=== PATIENT | male | born 1995 | race Caucasian/White ===

== ENCOUNTER 2016-04-06 15:33 | Emergency (ER) | payer OTHER ==
[2016-04-06] MEDS ORDERED: NORCO, ANEXSIA 5/325MG TABLET (HYDROcodone/ACETAMINOPHEN) As Ordered ONE (15:58)
[2016-04-06] MEDS ORDERED: IBUPROFEN 800 MG TAB As Ordered ONE (15:59)
--- NOTE | 2016-04-06 16:29 | REP ---
Clinical: Trauma. Technique: AP, lateral, bilateral oblique views of the right ankle. Findings: Lateral soft tissue swelling consistent with inversion injury. No acute fracture or dislocation. Joint spaces and ankle mortise intact. Impression: Predominant lateral soft tissue swelling. No acute fracture or dislocation. Signed by Simon Patel MD 04/06/2016 04:21 P
--- NOTE | 2016-04-06 16:30 | REP ---
Clinical: Trauma. Technique: AP and lateral views of the right foot. Findings: Osseous structures, joint spaces, and surrounding soft tissues are normal. No acute fracture or dislocation appreciated. Impression: Normal right foot radiographs. No acute fracture or dislocation. Signed by Simon Patel MD 04/06/2016 04:22 P
--- NOTE | 2016-04-06 17:14 | EDDOCDS ---
Physician Documentation [facility] Name: Flo Fuller Age: 20 yrs Sex: Male : 1995 Arrival Date: 04/06/2016 Time: 15:33 Bed PD Private MD: Daniel [facility] [place] Disposition: 04/06/16 16:28 Discharged to Home/Self Care. Impression: Sprain of ankle. - Condition is Stable. - Discharge Instructions: Ankle Sprain. - Prescriptions for Ibuprofen 800 mg Oral Tablet - take 1 tablet by ORAL route every 8 hours As needed take with food; 30 tablet. Tylenol 325 mg Oral Tablet - take 2 tablet by ORAL route every 6 hours as needed; 1 bottle. - Medication Reconciliation, Local Pharmacy Hours form. - Follow up: [place] [facility]; When: 2 - 3 days; Reason: Continuance of care. Follow up: Emergency Department; When: As needed; Reason: Worsening of conditions. - Problem is new. - Symptoms have improved. Historical: - Allergies: no known allergies; - Home Meds: 1. none - PMHx: none; - PSHx: none; - Social history: Smoking status: Patient states was never smoker of tobacco. No barriers to communication noted, The patient speaks fluent Maldivian, Speaks appropriately for age. - Family history: Not pertinent. - : The pt / caregiver states he / she is not on anticoagulants. Home medication list is obtained from the patient. - Exposure Risk Screening:: None identified. Vital Signs: 04/06 15:35 BP 153 / 66; Pulse 68; Resp 16; Temp 98.3(O); Pulse Ox 100% on R/A; Weight 90.72 kg / lr2 200 lbs (R); Height 5 ft. 10 in. (177.80 cm) (R); Pain 5/10; 17:10 BP 138 / 67; Pulse 62; Resp 18; Temp 98; Pulse Ox 97% ; Pain 6/10; ms18 15:35 Body Mass Index 28.70 (90.72 kg, 177.80 cm) lr2 Procedures: 16:49 Fracture care/splinting: (Stabilizing Care) Splint applied to right leg using walter wrap, dk1 Scotchcast applied by myself. Examined by me, post splint application: neurovascular intact, 2+ distal pulses palpable, brisk capillary refill noted, Patient tolerated well. MDM: 15:49 Ice Pack ordered. dk1 15:49 HYDROcodone-acetaminophen 5 mg-325 mg 1 tabs PO once ordered. dk1 15:49 Ibuprofen 800 mg PO once ordered. dk1 15:50 Ankle, Complete Ordered. EDMS 15:50 NOTHING BY MOUTH+DIET ordered. EDMS 15:53 Foot, (AP\E\lat) Ordered. EDMS 16:27 Crutches ordered. dk1 16:33 Financial registration complete. ks16 16:34 [facility] Payment Agreement was scanned into [employer] and attached to record. ks16 Administered Medications: 16:02 Drug: HYDROcodone-acetaminophen 1 tabs [hydrocodone 5 mg-acetaminophen 325 mg tablet (1 mlb1 tabs)] Route: PO; 17:10 Follow up: Response: No Adverse Reaction ms18 16:02 Drug: Ibuprofen 800 mg [ibuprofen 800 mg tablet (1 tabs)] Route: PO; mlb1 17:09 Follow up: Response: No Adverse Reaction ms18 Signatures: Dispatcher [employer] Serg Buchanan RN RN mlb1 Rubens Austin, PA-C PA-C dk1 Fifi Grissom RN RN ms18 Cadence Telles, Reg Reg ks16 The chart was reviewed and I authenticate all verbal orders and agree with the evaluation and treatment provided.Corrections: (The following items were deleted from the chart) 17:09 16:27 Apply Air Cast to Patient. ordered. dk1 ms18 Attachments: 16:34 [facility] Payment Agreement ks16 MTDD
--- NOTE | 2016-04-06 17:14 | EDDOCDS ---
Nurse's Notes [facility] Name: Flo Fuller Age: 20 yrs Sex: Male : 1995 Arrival Date: 04/06/2016 Time: 15:33 Bed PD Private MD: ELIU Sanchez Diagnosis: Sprain of ankle Presentation: 04/06 15:42 Presenting complaint: Patient states: Right ankle pain twisted while playing basketball mlb1 today. The patients lower extremity appears normal on examination. Adult Sepsis Screening: The patient does not have new or worsening altered mentation. Patient's respiratory rate is less than 22. Systolic blood pressure is greater than 100. Patient has a qSOFA score of 0- Negative Sepsis Screen. Suicide/Homicide risk assessment- the patient denies having any suicidal and/or homicidal ideations and does not present with any other emotional, behavioral or mental health complaints. Status: The patient is an active duty tire service technician. Transition of care: patient was not received from another setting of care. 15:42 Acuity: LILY Level 4 mlb1 15:42 Method Of Arrival: Walkin/Carried/Asstd mlb1 Triage Assessment: 15:43 General: Appears in no apparent distress, Behavior is appropriate for age, cooperative. mlb1 Pain: Location: right ankle Pain currently is 5 out of 10 on a pain scale. At worst was 9 out of 10 on a pain scale. Aggravated by repositioning, weight bearing. Pt Declines HIV testing. Musculoskeletal: 17:13 Musculoskeletal: Swelling present in right leg Reports pain in right leg. ms18 Historical: - Allergies: no known allergies; - Home Meds: 1. none - PMHx: none; - PSHx: none; - Social history: Smoking status: Patient states was never smoker of tobacco. No barriers to communication noted, The patient speaks fluent Taiwanese, Speaks appropriately for age. - Family history: Not pertinent. - : The pt / caregiver states he / she is not on anticoagulants. Home medication list is obtained from the patient. - Exposure Risk Screening:: None identified. Screenin:02 Screening information is obtained from the patient. Fall risk: No risks identified. mlb1 Assistance ADL's: requires no assistance with activities of daily living. Abuse/DV Screen: The patient / caregiver reports he/she is: not in a situation that causes fear, pain or injury. Nutritional screening: No deficits noted. Advance Directives: Currently, there is no health care proxy. home support is adequate. Assessment: 16:03 General: Appears in no apparent distress, comfortable, Behavior is appropriate for age, mlb1 cooperative. Pain: Location: right ankle Pain currently is 5 out of 10 on a pain scale. Musculoskeletal: Capillary refill < 3 seconds is brisk in right toes No deformity noted Swelling present in right ankle Signs and Symptoms of Compartment Syndrome: no signs of compartment syndrome. 17:10 General: Appears in no apparent distress, comfortable, Behavior is appropriate for age, ms18 cooperative, pleasant. Pain: Pain currently is 6 out of 10 on a pain scale. Neurological: Level of Consciousness is awake, alert, obeys commands, Oriented to person, place, time. Respiratory: No deficits noted. Derm: Skin is pink, warm & dry. Vital Signs: 15:35 BP 153 / 66; Pulse 68; Resp 16; Temp 98.3(O); Pulse Ox 100% on R/A; Weight 90.72 kg lr2 (R); Height 5 ft. 10 in. (177.80 cm) (R); Pain 5/10; 17:10 BP 138 / 67; Pulse 62; Resp 18; Temp 98; Pulse Ox 97% ; Pain 6/10; ms18 15:35 Body Mass Index 28.70 (90.72 kg, 177.80 cm) lr2 Vitals: 17:13 Log In Time: April 06, 2016 at 15:33. ms18 ED Course: 15:35 Patient visited by Steffi Recinos. lr2 15:35 Patient moved to Waiting lr2 15:36 Daniel [facility] [place] is Private Physician. lr2 15:36 Patient moved to Pre RCE lr2 15:41 Rubens Austin [facility] dk1 15:41 Joseph Lord MD is Attending Physician. dk1 15:41 Patient visited by Serg Fitzpatrick RN. mlb1 15:42 Triage Initiated mlb1 15:43 Patient visited by Serg Fitzpatrick, MAUREEN. mlb1 15:44 Patient visited by Rubens Austin PA-C. dk1 15:44 Patient moved to Triage 3 mlb1 15:45 Patient moved to Triage 1 kc3 16:02 The patient / caregiver is instructed regarding the plan of care and ED course. mlb1 16:02 No procedures done that require assistance. mlb1 16:03 Patient visited by Serg Fitzpatrick RN. mlb1 16:03 Patient moved to TR1 mlb1 16:19 Patient moved to PD dk1 16:28 [place] [facility] is Referral Physician. dk1 16:31 Ankle, Complete Returned. EDMS 16:31 Foot, (AP\E\lat) Returned. EDMS 16:34 [facility] Payment Agreement was scanned into [employer] and attached to record. ks16 16:39 Patient name changed from Flo\S\\S\Jonny\S\ to Flo\S\ \S\Jonny. EDMS 17:10 Patient has correct armband on for positive identification. Property sent home with ms18 patient. :Personal belongings accompany Pt. 17:10 No IV's were initiated during this patient's visit. Crutch training done. Provider D. ms18 Geovanna BUCKNER applied splint to pt's R leg. Administered Medications: 16:02 Drug: HYDROcodone-acetaminophen 1 tabs [hydrocodone 5 mg-acetaminophen 325 mg tablet (1 mlb1 tabs)] Route: PO; 17:10 Follow up: Response: No Adverse Reaction ms18 16:02 Drug: Ibuprofen 800 mg [ibuprofen 800 mg tablet (1 tabs)] Route: PO; mlb1 17:09 Follow up: Response: No Adverse Reaction ms18 Order Results: Radiology Order: Ankle, Complete Test: Ankle, Complete REASON FOR EXAMINATION: Trauma; Clinical: Trauma.; ; Technique: AP, lateral, bilateral oblique views of the right ankle.; ; Findings:; Lateral soft tissue swelling consistent with inversion injury. No acute fracture; or dislocation. Joint spaces and ankle mortise intact.; ; Impression:; Predominant lateral soft tissue swelling. No acute fracture or dislocation.; ; ; Signed by; Simon Patel MD 04/06/2016 04:21 P; Radiology Order: Foot, (AP\E\lat) Test: Foot, (AP\E\lat) REASON FOR EXAMINATION: Trauma; Clinical: Trauma.; ; Technique: AP and lateral views of the right foot.; ; Findings: Osseous structures, joint spaces, and surrounding soft tissues are; normal. No acute fracture or dislocation appreciated.; ; Impression:; Normal right foot radiographs. No acute fracture or dislocation.; ; ; Signed by; Simon Ptael MD 04/06/2016 04:22 P; Outcome: 16:28 Discharge ordered by Provider. dk1 17:10 Discharge Assessment: Patient awake, alert and oriented x 3. No cognitive and/or ms18 functional deficits noted. Patient verbalized understanding of disposition instructions. patient administered narcotics - yes. Pt provided with safe discharge. The following High Risk Discharge criteria are identified: None. Discharged to home ambulatory, with crutches, with friend. Condition: good Condition: stable Condition: improved. Discharge instructions given to patient, Instructed on discharge instructions, follow up and referral plans. medication usage, no driving heavy equipment, Rest, Ice, Compression and Elevation. crutch walking, Demonstrated understanding of instructions, medications, Patient was not receptive of discharge instructions. Prescriptions given X 2. No special radiology studies were completed. 17:14 Patient left the ED. ms18 Signatures: Dispatcher [employer] EDMS Serg Fitzpatrick RN RN mlb1 Rubens Austin, PA-C PA-C dk1 Fifi Grissom RN RN ms18 Stephanie Mcdaniels RN RN kc3 Cadence Telles, Reg Reg ks16 Steffi Recinos lr2 MTDD
--- NOTE | 2016-04-08 18:15 | EDDOCDS ---
Nurse's Notes [facility] Name: Flo Fuller Age: 20 yrs Sex: Male : 1995 Arrival Date: 04/06/2016 Time: 15:33 Bed PD Private MD: ELIU Sanchez Diagnosis: Sprain of ankle Presentation: 04/06 15:42 Presenting complaint: Patient states: Right ankle pain twisted while playing basketball mlb1 today. The patients lower extremity appears normal on examination. Adult Sepsis Screening: The patient does not have new or worsening altered mentation. Patient's respiratory rate is less than 22. Systolic blood pressure is greater than 100. Patient has a qSOFA score of 0- Negative Sepsis Screen. Suicide/Homicide risk assessment- the patient denies having any suicidal and/or homicidal ideations and does not present with any other emotional, behavioral or mental health complaints. Status: The patient is an active duty building services engineer. Transition of care: patient was not received from another setting of care. 15:42 Acuity: LILY Level 4 mlb1 15:42 Method Of Arrival: Walkin/Carried/Asstd mlb1 Triage Assessment: 15:43 General: Appears in no apparent distress, Behavior is appropriate for age, cooperative. mlb1 Pain: Location: right ankle Pain currently is 5 out of 10 on a pain scale. At worst was 9 out of 10 on a pain scale. Aggravated by repositioning, weight bearing. Pt Declines HIV testing. Musculoskeletal: 17:13 Musculoskeletal: Swelling present in right leg Reports pain in right leg. ms18 Historical: - Allergies: no known allergies; - Home Meds: 1. none - PMHx: none; - PSHx: none; - Social history: Smoking status: Patient states was never smoker of tobacco. No barriers to communication noted, The patient speaks fluent Moldovan, Speaks appropriately for age. - Family history: Not pertinent. - : The pt / caregiver states he / she is not on anticoagulants. Home medication list is obtained from the patient. - Exposure Risk Screening:: None identified. Screenin:02 Screening information is obtained from the patient. Fall risk: No risks identified. mlb1 Assistance ADL's: requires no assistance with activities of daily living. Abuse/DV Screen: The patient / caregiver reports he/she is: not in a situation that causes fear, pain or injury. Nutritional screening: No deficits noted. Advance Directives: Currently, there is no health care proxy. home support is adequate. Assessment: 16:03 General: Appears in no apparent distress, comfortable, Behavior is appropriate for age, mlb1 cooperative. Pain: Location: right ankle Pain currently is 5 out of 10 on a pain scale. Musculoskeletal: Capillary refill < 3 seconds is brisk in right toes No deformity noted Swelling present in right ankle Signs and Symptoms of Compartment Syndrome: no signs of compartment syndrome. 17:10 General: Appears in no apparent distress, comfortable, Behavior is appropriate for age, ms18 cooperative, pleasant. Pain: Pain currently is 6 out of 10 on a pain scale. Neurological: Level of Consciousness is awake, alert, obeys commands, Oriented to person, place, time. Respiratory: No deficits noted. Derm: Skin is pink, warm & dry. Vital Signs: 15:35 BP 153 / 66; Pulse 68; Resp 16; Temp 98.3(O); Pulse Ox 100% on R/A; Weight 90.72 kg lr2 (R); Height 5 ft. 10 in. (177.80 cm) (R); Pain 5/10; 17:10 BP 138 / 67; Pulse 62; Resp 18; Temp 98; Pulse Ox 97% ; Pain 6/10; ms18 15:35 Body Mass Index 28.70 (90.72 kg, 177.80 cm) lr2 Vitals: 17:13 Log In Time: April 06, 2016 at 15:33. ms18 ED Course: 15:35 Patient visited by Steffi Recinos. lr2 15:35 Patient moved to Waiting lr2 15:36 [place] [facility] [place] Private Physician. lr2 15:36 Patient moved to Pre RCE lr2 15:41 [facility]ens [facility] dk1 15:41 Joseph Lord MD is Attending Physician. dk1 15:41 Patient visited by Serg Fitzpatrick RN. mlb1 15:42 Triage Initiated mlb1 15:43 Patient visited by Serg Fitzpatrick, MAUREEN. mlb1 15:44 Patient visited by Rubens Austin PA-C. dk1 15:44 Patient moved to Triage 3 mlb1 15:45 Patient moved to Triage 1 kc3 16:02 The patient / caregiver is instructed regarding the plan of care and ED course. mlb1 16:02 No procedures done that require assistance. mlb1 16:03 Patient visited by Serg Fitzpatrick RN. mlb1 16:03 Patient moved to TR1 mlb1 16:19 Patient moved to PD dk1 16:28 [place] [facility] is Referral Physician. dk1 16:31 Ankle, Complete Returned. EDMS 16:31 Foot, (AP\E\lat) Returned. EDMS 16:34 [facility] Payment Agreement was scanned into [employer] and attached to record. ks16 16:39 Patient name changed from Flo\S\\S\Jonny\S\ to Flo\S\ \S\Jonny. EDMS 17:10 Patient has correct armband on for positive identification. Property sent home with ms18 patient. :Personal belongings accompany Pt. 17:10 No IV's were initiated during this patient's visit. Crutch training done. Provider D. ms18 Geovanna BUCKNER applied splint to pt's R leg. 04/07 09:09 T-Sheet-- Draft Copy was scanned into [employer] and attached to record. [facility] Administered Medications: 04/06 16:02 Drug: HYDROcodone-acetaminophen 1 tabs [hydrocodone 5 mg-acetaminophen 325 mg tablet (1 mlb1 tabs)] Route: PO; 17:10 Follow up: Response: No Adverse Reaction ms18 16:02 Drug: Ibuprofen 800 mg [ibuprofen 800 mg tablet (1 tabs)] Route: PO; mlb1 17:09 Follow up: Response: No Adverse Reaction ms18 Order Results: Radiology Order: Ankle, Complete Test: Ankle, Complete REASON FOR EXAMINATION: Trauma; Clinical: Trauma.; ; Technique: AP, lateral, bilateral oblique views of the right ankle.; ; Findings:; Lateral soft tissue swelling consistent with inversion injury. No acute fracture; or dislocation. Joint spaces and ankle mortise intact.; ; Impression:; Predominant lateral soft tissue swelling. No acute fracture or dislocation.; ; ; Signed by; Simon Patel MD 04/06/2016 04:21 P; Radiology Order: Foot, (AP\E\lat) Test: Foot, (AP\E\lat) REASON FOR EXAMINATION: Trauma; Clinical: Trauma.; ; Technique: AP and lateral views of the right foot.; ; Findings: Osseous structures, joint spaces, and surrounding soft tissues are; normal. No acute fracture or dislocation appreciated.; ; Impression:; Normal right foot radiographs. No acute fracture or dislocation.; ; ; Signed by; Simon Patel MD 04/06/2016 04:22 P; Outcome: 16:28 Discharge ordered by Provider. dk1 17:10 Discharge Assessment: Patient awake, alert and oriented x 3. No cognitive and/or ms18 functional deficits noted. Patient verbalized understanding of disposition instructions. patient administered narcotics - yes. Pt provided with safe discharge. The following High Risk Discharge criteria are identified: None. Discharged to home ambulatory, with crutches, with friend. Condition: good Condition: stable Condition: improved. Discharge instructions given to patient, Instructed on discharge instructions, follow up and referral plans. medication usage, no driving heavy equipment, Rest, Ice, Compression and Elevation. crutch walking, Demonstrated understanding of instructions, medications, Patient was not receptive of discharge instructions. Prescriptions given X 2. No special radiology studies were completed. 17:14 Patient left the ED. ms18 Signatures: Dispatcher Med[employer] EDMS Serg Fitzpatrick RN RN mlb1 Rubens Austin, PA-C PA-C dk1 Fifi Grissom RN RN ms18 Stephanie Mcdaniels,MAUREEN RN dylan3 Cadence Telles, Reg Reg ks16 Piper Cabral Laura lr2 Chart Complete MTDD
--- NOTE | 2016-04-08 18:15 | EDDOCDS ---
Physician Documentation [facility] Name: Flo Fuller Age: 20 yrs Sex: Male : 1995 Arrival Date: 04/06/2016 Time: 15:33 Bed PD Private MD: Daniel [facility] Disposition: 04/06/16 16:28 Discharged to Home/Self Care. Impression: Sprain of ankle. - Condition is Stable. - Discharge Instructions: Ankle Sprain. - Prescriptions for Ibuprofen 800 mg Oral Tablet - take 1 tablet by ORAL route every 8 hours As needed take with food; 30 tablet. Tylenol 325 mg Oral Tablet - take 2 tablet by ORAL route every 6 hours as needed; 1 bottle. - Medication Reconciliation, Local Pharmacy Hours form. - Follow up: [place] [facility]; When: 2 - 3 days; Reason: Continuance of care. Follow up: Emergency Department; When: As needed; Reason: Worsening of conditions. - Problem is new. - Symptoms have improved. Historical: - Allergies: no known allergies; - Home Meds: 1. none - PMHx: none; - PSHx: none; - Social history: Smoking status: Patient states was never smoker of tobacco. No barriers to communication noted, The patient speaks fluent Greenlandic, Speaks appropriately for age. - Family history: Not pertinent. - : The pt / caregiver states he / she is not on anticoagulants. Home medication list is obtained from the patient. - Exposure Risk Screening:: None identified. Vital Signs: 04/06 15:35 BP 153 / 66; Pulse 68; Resp 16; Temp 98.3(O); Pulse Ox 100% on R/A; Weight 90.72 kg / lr2 200 lbs (R); Height 5 ft. 10 in. (177.80 cm) (R); Pain 5/10; 17:10 BP 138 / 67; Pulse 62; Resp 18; Temp 98; Pulse Ox 97% ; Pain 6/10; ms18 15:35 Body Mass Index 28.70 (90.72 kg, 177.80 cm) lr2 Procedures: 16:49 Fracture care/splinting: (Stabilizing Care) Splint applied to right leg using walter wrap, dk1 Scotchcast applied by myself. Examined by me, post splint application: neurovascular intact, 2+ distal pulses palpable, brisk capillary refill noted, Patient tolerated well. MDM: 15:49 Ice Pack ordered. dk1 15:49 HYDROcodone-acetaminophen 5 mg-325 mg 1 tabs PO once ordered. dk1 15:49 Ibuprofen 800 mg PO once ordered. dk1 15:50 Ankle, Complete Ordered. EDMS 15:50 NOTHING BY MOUTH+DIET ordered. EDMS 15:53 Foot, (AP\E\lat) Ordered. EDMS 16:27 Crutches ordered. dk1 16:33 Financial registration complete. ks16 16:34 [facility] Payment Agreement was scanned into [employer] and attached to record. 04/07 09:09 T-Sheet-- Draft Copy was scanned into [employer] and attached to record. [facility] Administered Medications: 04/06 16:02 Drug: HYDROcodone-acetaminophen 1 tabs [hydrocodone 5 mg-acetaminophen 325 mg tablet (1 mlb1 tabs)] Route: PO; 17:10 Follow up: Response: No Adverse Reaction ms18 16:02 Drug: Ibuprofen 800 mg [ibuprofen 800 mg tablet (1 tabs)] Route: PO; mlb1 17:09 Follow up: Response: No Adverse Reaction ms18 Signatures: Dispatcher [employer] EDMS Serg Fitzpatrick RN RN mlb1 Rubens Austin PA-C PAAl dk1 Fifi Grissom RN RN ms18 Cadence Telles, Reg Reg ks16 Piper Cabral [facility] The chart was reviewed and I authenticate all verbal orders and agree with the evaluation and treatment provided.Corrections: (The following items were deleted from the chart) 17 16:27 Apply Air Cast to Patient. ordered. dk1 ms18 Attachments: 16:34 [facility] Payment Agreement 04/07 09:09 T-Sheet-- Draft Copy [facility] Chart Complete MTDD
--- NOTE | 2016-04-08 18:15 | EDDOCDS ---
Physician Documentation [facility] Name: Flo Fuller Age: 20 yrs Sex: Male : 1995 Arrival Date: 04/06/2016 Time: 15:33 Bed PD Private MD: Daniel [facility] Disposition: 04/06/16 16:28 Discharged to Home/Self Care. Impression: Sprain of ankle. - Condition is Stable. - Discharge Instructions: Ankle Sprain. - Prescriptions for Ibuprofen 800 mg Oral Tablet - take 1 tablet by ORAL route every 8 hours As needed take with food; 30 tablet. Tylenol 325 mg Oral Tablet - take 2 tablet by ORAL route every 6 hours as needed; 1 bottle. - Medication Reconciliation, Local Pharmacy Hours form. - Follow up: [place] [facility]; When: 2 - 3 days; Reason: Continuance of care. Follow up: Emergency Department; When: As needed; Reason: Worsening of conditions. - Problem is new. - Symptoms have improved. Historical: - Allergies: no known allergies; - Home Meds: 1. none - PMHx: none; - PSHx: none; - Social history: Smoking status: Patient states was never smoker of tobacco. No barriers to communication noted, The patient speaks fluent Lithuanian, Speaks appropriately for age. - Family history: Not pertinent. - : The pt / caregiver states he / she is not on anticoagulants. Home medication list is obtained from the patient. - Exposure Risk Screening:: None identified. Vital Signs: 04/06 15:35 BP 153 / 66; Pulse 68; Resp 16; Temp 98.3(O); Pulse Ox 100% on R/A; Weight 90.72 kg / lr2 200 lbs (R); Height 5 ft. 10 in. (177.80 cm) (R); Pain 5/10; 17:10 BP 138 / 67; Pulse 62; Resp 18; Temp 98; Pulse Ox 97% ; Pain 6/10; ms18 15:35 Body Mass Index 28.70 (90.72 kg, 177.80 cm) lr2 Procedures: 16:49 Fracture care/splinting: (Stabilizing Care) Splint applied to right leg using walter wrap, dk1 Scotchcast applied by myself. Examined by me, post splint application: neurovascular intact, 2+ distal pulses palpable, brisk capillary refill noted, Patient tolerated well. MDM: 15:49 Ice Pack ordered. dk1 15:49 HYDROcodone-acetaminophen 5 mg-325 mg 1 tabs PO once ordered. dk1 15:49 Ibuprofen 800 mg PO once ordered. dk1 15:50 Ankle, Complete Ordered. EDMS 15:50 NOTHING BY MOUTH+DIET ordered. EDMS 15:53 Foot, (AP\E\lat) Ordered. EDMS 16:27 Crutches ordered. dk1 16:33 Financial registration complete. [id number] 16:34 [facility] Payment Agreement was scanned into [employer] and attached to record. 04/07 09:09 T-Sheet-- Draft Copy was scanned into [employer] and attached to record. [facility] Administered Medications: 04/06 16:02 Drug: HYDROcodone-acetaminophen 1 tabs [hydrocodone 5 mg-acetaminophen 325 mg tablet (1 mlb1 tabs)] Route: PO; 17:10 Follow up: Response: No Adverse Reaction ms18 16:02 Drug: Ibuprofen 800 mg [ibuprofen 800 mg tablet (1 tabs)] Route: PO; mlb1 17:09 Follow up: Response: No Adverse Reaction ms18 Signatures: Dispatcher [employer] EDMS Serg Fitzpatrick RN RN mlb1 Rubens Austin PA-C PAAl dk1 Fifi Grissom RN RN ms18 Cadence Telles, Reg Reg ks16 Piper Cabral [facility] The chart was reviewed and I authenticate all verbal orders and agree with the evaluation and treatment provided.Corrections: (The following items were deleted from the chart) 17 16:27 Apply Air Cast to Patient. ordered. dk1 ms18 Attachments: 16:34 [facility] Payment Agreement 04/07 09:09 T-Sheet-- Draft Copy [facility] Chart Complete MTDD
== END 2016-04-06 17:14 | disposition home or self-care (01) ==
LOC: M ED 15:33
DX: S93.401A Sprain of unspecified ligament of right ankle, initial encounter (principal); X50.0XXA Overexertion from strenuous movement or load, initial encounter; Y92.89 Other specified places as the place of occurrence of the external cause; Y93.67 Activity, basketball; Y99.8 Other external cause status